=== PATIENT | male | born 2000 | race African-American/Black ===

== ENCOUNTER 2024-03-05 09:40 | Inpatient (IN) | payer OTHER ==
[~2024-03-05] VITALS: Ht 165.1 cm; Wt 94.0 kg
[2024-03-05 11:21] LABS: ETHYL ALCOHOL (ETHANOL) < 0.003 % (0.000-0.010)
[2024-03-05 11:22] LABS: HEMATOCRIT 41.4 % (42.0-52.0); HEMOGLOBIN 13.1 g/dl (13.5-17.5); MEAN CORPUSCULAR HEMOGLOBIN 24.8 pg (27.0-33.0); MEAN CORPUSCULAR HGB CONC 31.6 g/dl (32.0-36.5); MEAN CORPUSCULAR VOLUME 78.4 fl (80.0-96.0); PLATELET COUNT, AUTOMATED 243 10^3/uL (150-450); RED BLOOD COUNT 5.28 10^6/uL (4.30-6.10); WHITE BLOOD COUNT 5.2 10^3/uL (4.0-10.0)
[2024-03-05 11:23] LABS: ALBUMIN 4.4 G/DL (3.2-5.2); ALKALINE PHOSPHATASE 76 U/L (46-116); ALT/SGPT 23 U/L (7.0-40); AST/SGOT 33 U/L (<34); BILIRUBIN,DIRECT 0.3 MG/DL (<0.4); BILIRUBIN,TOTAL 1.1 MG/DL (0.3-1.2); BLOOD UREA NITROGEN 12 MG/DL (9-23); CALCIUM LEVEL 9.3 MG/DL (8.5-10.1); CARBON DIOXIDE LEVEL 26 MMOL/L (20-31); CHLORIDE LEVEL 108 MMOL/L (98-107); CREATININE FOR GFR 0.85 MG/DL (0.70-1.30); GLOMERULAR FILTRATION RATE > 60.0 (>60); GLUCOSE, FASTING 82 MG/DL (60-100); POTASSIUM SERUM 4.2 MMOL/L (3.5-5.1); SALICYLATE LEVEL < 3.0 MG/DL (<30); SODIUM LEVEL 142 MMOL/L (136-145); TOTAL PROTEIN 7.7 G/DL (5.7-8.2)
[2024-03-05 11:24] LABS: THYROID STIMULATING HORMONE 1.077 uIU/ML (0.55-4.78)
[2024-03-05 12:48] LABS: METHADONE URINE NEGATIVE (NEGATIVE)
[2024-03-05 12:49] LABS: AMPHETAMINES LEVEL URINE NEGATIVE (NEGATIVE); BARBITURATES URINE NEGATIVE (NEGATIVE); BENZODIAZEPINES URINE NEGATIVE (NEGATIVE); CANNABINOIDS URINE NEGATIVE (NEGATIVE); COCAINE METABOLITE URINE NEGATIVE (NEGATIVE); OPIATES URINE NEGATIVE (NEGATIVE); PHENCYCLIDINE URINE NEGATIVE (NEGATIVE)
[2024-03-05] MEDS ORDERED: HOME MED LIST COMPLETE! XX SCH (13:50)
[2024-03-05 14:38] LABS: AMORPHOUS SEDIMENT MODERATE (NEGATIVE); APPEARANCE, URINE TURBID (CLEAR); BACTERIA, URINE AUTO NEGATIVE (NEGATIVE); BILIRUBIN, URINE AUTO NEGATIVE (NEGATIVE); BLOOD, URINE BLOOD NEGATIVE (NEGATIVE); COLOR, URINE YELLOW (YELLOW); GLUCOSE, URINE (UA) AUTO NEGATIVE (NEGATIVE); KETONE, URINE AUTO NEGATIVE (NEGATIVE); LEUKOCYTE ESTERASE, URINE AUTO NEGATIVE (NEGATIVE); MUCUS, URINE SMALL (NEGATIVE); NITRITE, URINE AUTO NEGATIVE (NEGATIVE); PROTEIN, URINE AUTO 1+ mg/dL (NEGATIVE); RBC, URINE AUTO 2 /HPF (0-3); SPECIFIC GRAVITY URINE AUTO 1.028 (1.002-1.035); SQUAMOUS EPITHELIAL CELL UR AU 0 /HPF (0-6); WBC, URINE AUTO 0 /HPF (0-3)
[2024-03-07] MEDS ORDERED: IBUPROFEN 400MG TAB PO PRN (11:40)
[2024-03-07] MEDS ORDERED: MAALOX 30 ML SUSP *UDC PO PRN (11:40)
[2024-03-07] MEDS ORDERED: MOM 30ML SUSPENSION UDC PO PRN (11:40)
[2024-03-07] MEDS ORDERED: ACETAMINOPHEN TAB 650MG DOSE (2X325MG) PO PRN (11:40)
[2024-03-07] MEDS ORDERED: traZODone 50 MG TAB PO PRN (11:40)
[2024-03-07] MEDS ORDERED: diphenhydrAMINE 25MG CAP PO PRN (11:40)
[2024-03-09] MEDS ORDERED: traZODone 50 MG TAB PO PRN (13:50)
[2024-03-09] MEDS ORDERED: MOM 30ML SUSPENSION UDC PO PRN (13:50)
[2024-03-09] MEDS ORDERED: IBUPROFEN 400MG TAB PO PRN (13:50)
[2024-03-09] MEDS ORDERED: MAALOX 30 ML SUSP *UDC PO PRN (13:50)
[2024-03-09] MEDS ORDERED: diphenhydrAMINE 25MG CAP PO PRN (13:50)
[2024-03-09] MEDS ORDERED: ACETAMINOPHEN TAB 650MG DOSE (2X325MG) PO PRN (13:50)
[2024-03-09 17:32] VITALS: BP 165/78; TEMP 97.7; O2SAT 100
[2024-03-10 06:47] VITALS: BP 131/64; TEMP 97.6; O2SAT 98
[2024-03-10 16:04] VITALS: BP 170/80; TEMP 97.7; O2SAT 100
[2024-03-11 06:23] VITALS: BP 119/61; TEMP 98.1; O2SAT 100
[2024-03-11 16:11] VITALS: BP 132/74; TEMP 97.9; O2SAT 100
[2024-03-12 06:19] VITALS: BP 128/79; TEMP 98.2; O2SAT 100
[2024-03-12 15:51] VITALS: BP 142/84; TEMP 97.4; O2SAT 99
[2024-03-13 06:24] VITALS: BP 115/61; TEMP 97.4; O2SAT 100
== END 2024-03-13 12:42 | disposition home or self-care (01) | DRG 881 ==
LOC: M ED 09:40 → EDBD 09:40 → M ED INP 03-07 11:40 → UNDOADMIN 03-07 11:40 → M ED INP 03-09 13:49 → M PSY 03-09 16:01
PROVIDERS: ADMIT Psychiatry & Neurology Child & Adolescent Psychiatry; ATTEND Psychiatry & Neurology Child & Adolescent Psychiatry
DX: F32.A Depression, unspecified (principal); R45.851 Suicidal ideations; F43.20 Adjustment disorder, unspecified; Z59.9 Problem related to housing and economic circumstances, unspecified; Z65.3 Problems related to other legal circumstances; Z63.8 Other specified problems related to primary support group

== ENCOUNTER 2024-06-10 19:41 | Inpatient (IN) | payer OTHER ==
[~2024-06-10] VITALS: Ht 165.1 cm; Wt 93.4 kg
[2024-06-10 21:23] LABS: HEMATOCRIT 43.4 % (42.0-52.0); HEMOGLOBIN 13.9 g/dl (13.5-17.5); MEAN CORPUSCULAR HEMOGLOBIN 25.2 pg (27.0-33.0); MEAN CORPUSCULAR VOLUME 78.8 fl (80.0-96.0); PLATELET COUNT, AUTOMATED 274 10^3/uL (150-450); RED BLOOD COUNT 5.51 10^6/uL (4.30-6.10); WHITE BLOOD COUNT 7.4 10^3/uL (4.0-10.0)
[2024-06-10 21:54] LABS: AMPHETAMINES LEVEL URINE NEGATIVE (NEGATIVE); BARBITURATES URINE NEGATIVE (NEGATIVE); BENZODIAZEPINES URINE NEGATIVE (NEGATIVE); COCAINE METABOLITE URINE NEGATIVE (NEGATIVE); METHADONE URINE NEGATIVE (NEGATIVE); OPIATES URINE NEGATIVE (NEGATIVE)
[2024-06-10 21:55] LABS: CANNABINOIDS URINE NEGATIVE (NEGATIVE); PHENCYCLIDINE URINE NEGATIVE (NEGATIVE)
[2024-06-10 21:57] LABS: ETHYL ALCOHOL (ETHANOL) 0.006 % (0.000-0.010)
[2024-06-10 21:59] LABS: ALBUMIN 4.3 G/DL (3.2-5.2); ALKALINE PHOSPHATASE 93 U/L (40-129); ALT/SGPT 20 U/L (7.0-40); AST/SGOT 23 U/L (<34); BILIRUBIN,DIRECT 0.2 MG/DL (<0.4); BILIRUBIN,TOTAL 0.6 MG/DL (0.3-1.2); BLOOD UREA NITROGEN 7 MG/DL (9-23); CALCIUM LEVEL 10.1 MG/DL (8.5-10.1); CARBON DIOXIDE LEVEL 29 MMOL/L (20-31); CHLORIDE LEVEL 104 MMOL/L (98-107); CREATININE FOR GFR 0.83 MG/DL (0.70-1.30); GLOMERULAR FILTRATION RATE > 60.0 (>60); GLUCOSE, FASTING 109 MG/DL (60-100); POTASSIUM SERUM 3.7 MMOL/L (3.5-5.1); SALICYLATE LEVEL < 3.0 MG/DL (<30); SODIUM LEVEL 141 MMOL/L (136-145); TOTAL PROTEIN 7.8 G/DL (5.7-8.2)
[2024-06-10 22:00] LABS: THYROID STIMULATING HORMONE 1.197 uIU/ML (0.55-4.78)
[2024-06-10] MEDS ORDERED: HOME MED LIST COMPLETE! XX SCH (23:15)
[2024-06-10] MEDS ORDERED: MOM 30ML SUSPENSION UDC PO PRN (23:55)
[2024-06-10] MEDS ORDERED: IBUPROFEN 400MG TAB PO PRN (23:55)
[2024-06-10] MEDS ORDERED: MAALOX 30 ML SUSP *UDC PO PRN (23:55)
[2024-06-10] MEDS ORDERED: traZODone 50 MG TAB PO PRN (23:55)
[2024-06-10] MEDS ORDERED: diphenhydrAMINE 25MG CAP PO PRN (23:55)
[2024-06-10] MEDS ORDERED: ACETAMINOPHEN 325 MG TAB PO PRN (23:55)
[2024-06-11 01:25] VITALS: BP 146/82; TEMP 97.9; O2SAT 100
[2024-06-11 06:33] VITALS: BP 120/72; TEMP 97.5; O2SAT 100
[2024-06-11 15:25] VITALS: BP 162/96; TEMP 97.1; O2SAT 99
[2024-06-12 06:25] VITALS: BP 112/71; TEMP 97.4; O2SAT 100
[2024-06-12 14:58] VITALS: BP 165/85; TEMP 98; O2SAT 98
[2024-06-13 06:51] VITALS: BP 117/66; TEMP 97.7; O2SAT 99
[2024-06-13 14:51] VITALS: BP 147/74; TEMP 97.2; O2SAT 100
[2024-06-14 06:36] VITALS: BP 128/75; TEMP 97; O2SAT 99
[2024-06-14 15:08] VITALS: BP 133/70; TEMP 97.6; O2SAT 100
[2024-06-15 06:40] VITALS: BP 134/78; TEMP 97.6; O2SAT 98
== END 2024-06-15 11:20 | disposition home or self-care (01) | DRG 881 ==
LOC: M ED 19:41 → M ED INP 23:55 → M PSY 06-11 00:49
PROVIDERS: ADMIT Psychiatry & Neurology Psychiatry; ATTEND Psychiatry & Neurology Psychiatry
DX: F32.A Depression, unspecified (principal); R45.851 Suicidal ideations; F43.20 Adjustment disorder, unspecified; F17.200 Nicotine dependence, unspecified, uncomplicated; R03.0 Elevated blood-pressure reading, without diagnosis of hypertension; Z56.6 Other physical and mental strain related to work; Z65.3 Problems related to other legal circumstances